=== PATIENT | female | born 1970 | race Caucasian/White ===

== ENCOUNTER 2018-06-14 20:22 | Emergency (ER) | payer BC, OTHER ==
[~2018-06-14] VITALS: Ht 160 cm; Wt 71.7 kg
[2018-06-14 20:22] VITALS: BP 148/95
[~2018-06-14 20:22] MED LIST: FLUO10CA21 PO
--- NOTE | 2018-06-14 20:33 | NUR ---
EKG PERFORMED IN TRIAGE ROOM WITH TRIAGE NURSE AND FAMILY MEMBER PRESENT
--- NOTE | 2018-06-14 21:05 | NUR ---
PT TAKEN TO XRAY FROM [facility]
[2018-06-14 21:07] LABS: BASOPHILS % (AUTO) 0.3 % (0.0-2.0); EOSINOPHILS # (AUTO) 0.3 K/uL (0-0.4); HEMATOCRIT 39.9 % (36-48); HEMOGLOBIN 13.5 g/dL (12.0-16.0); LYMPHOCYTES # (AUTO) 2.3 K/uL (2.5-16.5); LYMPHOCYTES % (AUTO) 28.2 % (20.5-51.1); MEAN CORPUSCULAR HEMOGLOBIN 29 pg (27-31); MEAN CORPUSCULAR HGB CONC 34 g/dL (33-37); MONOCYTES # (AUTO) 0.5 K/uL (0.8-1.0); MONOCYTES % (AUTO) 5.8 % (1.7-9.3); NEUTROPHILS # (AUTO) 5.2 K/uL (1.8-7.7); NEUTROPHILS % (AUTO) 62.7 % (42.2-75.2); PLATELET COUNT (AUTO) 212 K/uL (140-450); RED BLOOD CELL COUNT(AUTO) 4.64 MIL/uL (4.20-5.40); RED CELL DISTRIBUTION WIDTH 14.8 % (11.6-13.7); WHITE BLOOD COUNT (AUTO) 8.3 K/uL (4.8-10.8)
[2018-06-14 21:14] LABS: CARBON DIOXIDE 29.4 mmol/L (21-32); CREATININE 0.8 mg/dL (0.6-1.3); POTASSIUM 3.4 mmol/L (3.5-5.1)
[2018-06-14 21:20] LABS: TOTAL BILIRUBIN 0.3 mg/dL (0.0-1.0)
--- NOTE | 2018-06-14 22:22 | NUR ---
TO ED 03 WITH STEADY GAIT.
--- NOTE | 2018-06-14 22:25 | NUR ---
PT TO ED WITH C/O CHEST PAIN AND L ARM NUMBESS X2 DAYS. EKG PERFROMED IN TRAIGE PER PROTOCOL, READ BY ER MD. PT DENIES SOB/CP RADIATION. CAP REFILL WNL, NO EDEMA NOTED TO EXTREMITIES. NO NEURO DEFICTS NOTED. FACIAL SYMMETRY PRESENT. ARM WIRING INSPECTOR EQUAL. PT PLACED ONTO ALL MONITORS, PENDING MD MARIN. PMH--DENIES RX--PROZAC
--- NOTE | 2018-06-14 23:51 | NUR ---
Dr. Bolanos evaluating patient at bedside.
[2018-06-14] MEDS ORDERED: KETOROLAC 60 MG/2 ML VIAL IM ONE (23:55)
[2018-06-15 00:40] VITALS: BP 133/81
== END 2018-06-15 00:40 | disposition home or self-care (01) ==
LOC: MED 20:22
DX: R07.89 Other chest pain (principal); Z88.5 Allergy status to narcotic agent; Z79.899 Other long term (current) drug therapy
CPT/HCPCS: 36415; 71045; 80053; 84484; 85025; 93005; 96372; 99284; J1885

== ENCOUNTER 2018-06-22 18:47 | Emergency (ER) | payer BC ==
[~2018-06-22] VITALS: Ht 162.6 cm; Wt 71.4 kg
[2018-06-22 18:58] VITALS: BP 130/67
--- NOTE | 2018-06-22 20:37 | NUR ---
PT WAS CALLED NO ANSWER IN LOBBY AND OR OUTSIDE. PT LWBS.
--- NOTE | 2018-06-22 21:25 | NUR ---
PT WAS CALLED X2 NO ANSWER IN LOBBY AND OR OUTSIDE. PT LWBS.
--- NOTE | 2018-06-22 21:40 | NUR ---
PT WAS CALLED FOR THE THIRD TIME, NO ANSWER IN LOBBY AND OR OUTSIDE. PT LWBS.
--- NOTE | 2018-06-22 21:42 | NUR ---
Shannan liu in ED - 06/22/18 at 2144 by [email or web address] PT WAS CALLED NO ANSWER IN LOBBY AND OR OUTSIDE. PT LWBS.
--- NOTE | 2018-06-22 21:45 | NUR ---
PATIENT LEFT WITHOUT BEING SEEN BY DR. UNDERWOOD. NO FURTHER CARE PROVIDED FOR PATIENT.
== END 2018-06-22 20:37 | disposition left against medical advice (07) ==
LOC: MED 18:47
DX: R07.89 Other chest pain (principal); R51 Headache; Z53.21 Procedure and treatment not carried out due to patient leaving prior to being seen by health care provider

== ENCOUNTER 2018-06-23 12:43 | Emergency (ER) | payer BC ==
[~2018-06-23] VITALS: Ht 160 cm; Wt 70.8 kg
[2018-06-23 12:46] VITALS: BP 128/85
--- NOTE | 2018-06-23 13:02 | NUR ---
PATIENT PRESENTS TO ED WITH THE CHIEF C/O CHEST PAIN. PT REPORTS HAVING CHEST PAIN SINCE A WEEK. SHE WAS HERE YESTERDAY AND LEFT W/O SEEN BY DOCTOR BECAUSE SHE FELT BETTER. GOT PAIN WORSE TOOK BABY ASPIRIN Q4H AT HOME. PER PT PAIN RADIATES TO NECK AND LEFT ARM, NUMBNESS ON EFT ARM. DENIES N/V/D. SKIN IS PINK/WARM/DRY. AAOX4 WITH EVEN AND STEADY GAIT. LUNGS CLEAR BL; HR EVEN AND REGULAR. PT DENIES ANY FEVER, CP, SOB, OR COUGH AT THIS TIME. PATIENT STATES PAIN OF 0/10 AT THIS TIME. VSS. PATIENT POSITIONED FOR COMFORT; HOB ELEVATED; BEDRAILS UP X2. BED DOWN. ER MD MADE AWARE OF PT STATUS.
--- NOTE | 2018-06-23 13:04 | NUR ---
EKG IN PROCESS.
--- NOTE | 2018-06-23 13:04 | NUR ---
PT ENCOURAGED TO PROVIDE URINE SAMPLE, URINE CUP PROVIDED.
[2018-06-23] MEDS ORDERED: KETOROLAC 60 MG/2 ML VIAL IM ONE (13:20)
[2018-06-23] MEDS ORDERED: ASPIRIN 81 MG TAB.CHEW PO ONE (13:20)
--- NOTE | 2018-06-23 14:40 | NUR ---
PT APPEARS RELAXED, RESTING IN BED. DENIIES ANY CP, SOB OR DIFFULTY BREATHING. VS WNL.
[2018-06-23 16:03] VITALS: BP 113/56
== END 2018-06-23 16:02 | disposition home or self-care (01) ==
LOC: MED 12:43
DX: F41.9 Anxiety disorder, unspecified (principal); Z88.5 Allergy status to narcotic agent; Z79.899 Other long term (current) drug therapy
CPT/HCPCS: 36415; 84484; 93005; 96372; 99284; J1885